=== PATIENT | female | born 1980 | race Caucasian/White ===

== ENCOUNTER 2017-09-04 21:35 | Emergency (ER) | payer SELFPAY ==
[2017-09-04] MEDS ORDERED: Naproxen 550 mg Tab PO STA (22:23)
[2017-09-04] MEDS ORDERED: Naproxen 550 mg Tab PO ONE (22:43)
--- NOTE | 2017-09-04 23:03 | C.PDOC ---
Time Seen by Provider: 09/04/17 22:13 Chief Complaint (Nursing): Flu-like Symptoms History Per: Patient, Family Onset/Duration Of Symptoms: Days (3) Current Symptoms Are (Timing): Still Present Associated Symptoms: Fever, Sore Throat, Cough, Myalgias, Nasal Congestion, Nausea, Vomiting Severity: Moderate Additional History Per: Prior Records Past Medical History Reviewed: Historical Data, Nursing Documentation, Vital Signs Vital Signs: Last Vital Signs Temp 101.9 F H 09/04/17 21:58 Pulse 100 H 09/04/17 21:58 Resp 18 09/04/17 21:58 BP 134/84 09/04/17 21:58 Pulse Ox 98 09/04/17 21:58 - Medical History PMH: No Chronic Diseases Surgical History: Family History: States: Unknown Family Hx - Social History Hx Tobacco Use: No Hx Alcohol Use: No Hx Substance Use: No Review Of Systems Except As Marked, All Systems Reviewed And Found Negative. Constitutional: Positive for: Fever, Malaise ENT: Positive for: Nose Congestion, Throat Pain Respiratory: Positive for: Cough. Negative for: Shortness of Breath, Hemoptysis Gastrointestinal: Positive for: Nausea, Vomiting. Negative for: Diarrhea Genitourinary: Negative for: Dysuria Skin: Negative for: Rash Neurological: Positive for: Headache. Negative for: Weakness, Numbness, Seizures, Altered Mental Status Physical Exam - Physical Exam Appears: Non-toxic, No Acute Distress Skin: Normal Color, Warm, Dry, No Rash Head: Atraumatic, Normacephalic Eye(s): bilateral: Normal Inspection, PERRL, EOMI Oral Mucosa: Moist, No Drooling, No Trismus Throat: Erythema, No Exudate, No Drooling, No Mass Neck: Normal ROM, Supple Cardiovascular: Rhythm Regular Respiratory: Normal Breath Sounds, No Accessory Muscle Use Gastrointestinal/Abdominal: Soft Back: No CVA Tenderness Extremity: Normal ROM Neurological/Psych: Oriented x3, Normal Speech, Normal Motor, Normal Sensation ED Course And Treatment - Laboratory Results Interpretation Of Abnormal: Flu B positive O2 Sat by Pulse Oximetry: 98 Pulse Ox Interpretation: Normal Progress - Interventions Interventions:: Observation - Medications Administered Oral: Antiemetic, H-2 yari, NSAID - Data Reviewed Data Reviewed: Lab, Old records - Patient Status Patient status: Partially improved - Continuity of Care Discussed patient case with:: Patient, Family-HIPPA compliant, ED Nurse - Patient Plan Patient Plan: Discharge, F/U with PCP Disposition Counseled Patient/Family Regarding: Studies Performed, Diagnosis, Need For Followup, Rx Given - Disposition Referrals: Shaik Batista MD [Staff Provider] - Disposition: HOME/ ROUTINE Disposition Time: 23:03 Condition: STABLE Additional Instructions: Drink plenty of fluids. Follow up with your doctor this week. Return to the ER if you develop shortness of breath, not tolerating fluids, worsening of symptoms or if you have any other concerns. Prescriptions: Benzonatate 200 mg PO TID PRN #15 capsule PRN Reason: Cough Naproxen [Naprosyn] 1 tab PO BID PRN #20 tab PRN Reason: Fever >100.4 F Ondansetron [Zofran] 4 mg PO Q8H PRN #15 tab PRN Reason: Nausea/Vomiting Instructions: Flu, Adult (DC) Print Language: SLOVAK - Clinical Impression Clinical Impression: Influenza B
[2017-09-04 23:24] VITALS: BP 130/80; PULSE 84; RESP 20; TEMP 100.3; O2SAT 100
== END 2017-09-04 23:24 | disposition home or self-care (01) ==
LOC: C.ER 21:35
DX: J10.1 Influenza due to other identified influenza virus with other respiratory manifestations (principal)